=== PATIENT | female | born 1975 | race Asian ===

== ENCOUNTER 2016-06-26 12:38 | Emergency (ER) | payer MEDICAID ==
[2016-06-26] MEDS ORDERED: RABIES IMMUNE GLOBULIN 300 UNIT/2 ML VIAL IM ONE ×2 (13:18→14:00)
[2016-06-26] MEDS ORDERED: RABIES VACC, HUMAN DIPLOID/PF 2.5 UNIT VIAL (RABAVERT) IM ONE (13:18)
--- NOTE | 2016-06-26 13:24 | EDPHY ---
H & P Stated Complaint: Dog bite Thursday, Dog has been put done-? + Rabies. Time Seen by Provider: 06/26/16 13:04 HPI/ROS: CHIEF COMPLAINT: Dog bite HISTORY OF PRESENT ILLNESS: Patient is a 40-year-old female who comes in with her friend concern for rabies exposure. Patient was bitten by her friend's dog 4 days ago. The wound has been cleaned with hydrogen peroxide and dressed. It is a small puncture wound to her upper left arm. In the last 4 days however the dog that bit her has been showing progressively more concerning signs of rabies. On Thursday night patient was bit because she accidentally fell off the couch onto the dog. However on on Thursday the dog became more agitated. On Thursday the dog became very aggressive on Thursday appear to have a seizure and become incontinent and began drooling. Today the dog was taken by animal Control and euthanized for brain biopsy. Patient states that they should have the results by tomorrow. The dog was 2 months past due for his rabies vaccine. REVIEW OF SYSTEMS: Constitutional: denies: chills, fever, recent illness, recent injury EENTM: denies: blurred vision, double vision, nose congestion Respiratory: denies: cough, shortness of breath Cardiac: denies: chest pain, irregular heart rate, lightheadedness, palpitations Gastrointestinal/Abdominal: denies: abdominal pain, diarrhea, nausea, vomiting, blood streaked stools Genitourinary: denies: dysuria, frequency, hematuria, pain Musculoskeletal: denies: joint pain, muscle pain Skin: See HPI Neurological: denies: headache, numbness, paresthesia, tingling, dizziness, weakness Hematologic/Lymphatic: denies: blood clots, easy bleeding, easy bruising Immunologic/allergic: denies: HIV/AIDS, transplant EXAM: GENERAL: Well-appearing, well-nourished and in no acute distress. HEAD: Atraumatic, normocephalic. EYES: Pupils equal round and reactive to light, extraocular movements intact, sclera anicteric, conjunctiva are normal. ENT: TMs normal, nares patent, oropharynx clear without exudates. Moist mucous membranes. NECK: Normal range of motion, supple without lymphadenopathy or JVD. LUNGS: Breath sounds clear to auscultation bilaterally and equal. No wheezes rales or rhonchi. HEART: Regular rate and rhythm without murmurs, rubs or gallops. ABDOMEN: Soft, nontender, normoactive bowel sounds. No guarding, no rebound. No masses appreciated. BACK: No CVA tenderness, no spinal tenderness, step-offs or deformities EXTREMITIES: Normal range of motion, no pitting or edema. No clubbing or cyanosis. NEUROLOGICAL: Cranial nerves II through XII grossly intact. Normal speech, normal gait. 5/5 strength, normal movement in all extremities, normal sensation PSYCH: Normal mood, normal affect. SKIN: Small puncture wound left upper arm over lateral aspect. Minimal erythema surrounding the wound. No swelling. Source: Patient Exam Limitations: No limitations - Personal History LMP (Females 10-55): 8-14 Days Ago Current Tetanus/Diphtheria Vaccine: Unsure Current Tetanus Diphtheria and Acellular Pertussis (TDAP): Unsure - Medical/Surgical History Hx Asthma: No Hx Chronic Respiratory Disease: No Hx Diabetes: No Hx Cardiac Disease: No Hx Renal Disease: No Hx Cirrhosis: No Hx Alcoholism: No Hx HIV/AIDS: No Hx Splenectomy or Spleen Trauma: No Other PMH: Denies. - Family History Significant Family History: No pertinent family hx - Social History Smoking Status: Heavy smoker Alcohol Use: Sober Drug Use: None Constitutional: Initial Vital Signs Temperature (C) 36.8 C 06/26/16 12:48 Heart Rate 87 06/26/16 12:48 Respiratory Rate 16 06/26/16 12:48 Blood Pressure 123/76 H 06/26/16 12:48 O2 Sat (%) 97 06/26/16 12:48 O2 Delivery Mode Room Air Allergies/Adverse Reactions: No Known Allergies Allergy (Unverified 06/26/16 12:56) Home Medications: Medication Instructions Recorded NK [No Known Home Meds] 06/26/16 Medical Decision Making ED Course/Re-evaluation: I feel the patient has a high risk exposure for rabies. I will start her on the immunoglobulin and vaccine series. The patient is in agreement with this. They will track the results with animal control. I will refer them to [facility] for further treatment if needed. Differential Diagnosis: Partial list of the Differential diagnosis considered include but were not limited to; rabies exposure, dog bite, foreign body, wound infection and although unlikely based on the history and physical exam, I also considered cellulitis, abscess, tendon injury, fracture. I discussed these differential diagnoses and the plan with the patient as well as the usual and expected course. The patient understands that the diagnosis is provisional and that in medicine we are not always correct and that further workup is often warranted. Usual and customary warnings were given. All of the patient's questions were answered. The patient was instructed to return to the emergency department should the symptoms at all worsen or return, otherwise to followup with the physician as we discussed. - Data Points Medications Given: Discontinued Medications Rabies Immune Globulin (Imogam Rabies Ht 2ml) 1,180 unit IM .ONCE ONE Stop: 06/26/16 14:01 Last Admin: 06/26/16 14:27 Dose: 1,180 unit Rabies Vaccine Human Diploid Cell (Rabavert) 2.5 unit IM .ONCE ONE Stop: 06/26/16 13:19 Last Admin: 06/26/16 14:03 Dose: 2.5 unit Departure - Departure Disposition: Home, Routine, Self-Care Clinical Impression: Rabies exposure Condition: Fair Instructions: Rabies Vaccine (By injection), Rabies Immune Globulin (By injection), Rabies (ED) Referrals: NONE *PRIMARY CARE P,. [Primary Care Provider] - As per Instructions Jarad Berger MD [Medical Doctor] - 2-3 days, call for appt. ()
[2016-06-26] MEDS ORDERED: RABIES IMMUNE GLOBULIN 150 UNIT/ML 10 ML VIAL IM ONE (14:00)
[2016-06-26 14:42] VITALS: BP 128/79; PULSE 80; RESP 14; TEMP 98.4; O2SAT 94
== END 2016-06-26 14:41 | disposition home or self-care (01) ==
PROC: 3E0234Z Introduction of Serum, Toxoid and Vaccine into Muscle, Percutaneous Approach (ICD-10-PCS; principal; 2016-06-26)
DX: Z20.3 Contact with and (suspected) exposure to rabies (principal); F17.200 Nicotine dependence, unspecified, uncomplicated; Z23 Encounter for immunization